=== PATIENT | female | born 1990 | race Caucasian/White ===

== ENCOUNTER 2017-04-12 07:57 | Emergency (ER) | payer MEDICARE | END 2017-04-12 08:50 | disposition home or self-care (01) | LOC: D.ER 07:57 | DX: S69.91XA Unspecified injury of right wrist, hand and finger(s), initial encounter (principal); W23.0XXA Caught, crushed, jammed, or pinched between moving objects, initial encounter; Y93.89 Activity, other specified; Y92.89 Other specified places as the place of occurrence of the external cause; Z86.59 Personal history of other mental and behavioral disorders; F17.200 Nicotine dependence, unspecified, uncomplicated ==

== ENCOUNTER 2018-02-24 23:43 | Emergency (ER) | payer MEDICARE ==
[~2018-02-24] VITALS: Ht 165.1 cm; Wt 161.8 kg
[2018-02-24 23:56] VITALS: Ht 165.1 cm; Wt 161.8 kg
[2018-02-24] MEDS ORDERED: TESTOSTERONE IM (23:58)
[2018-02-24] MEDS ORDERED: SEROQUEL200 MG PO (23:59)
[2018-02-24] MEDS ORDERED: ATIVAN1 MG PO (23:59)
[2018-02-24] MEDS ORDERED: BENZTROPINE MESY2 MG PO (23:59)
[2018-02-24] MEDS ORDERED: DEPAKOTE500 MG PO (23:59)
[2018-02-25] MEDS ORDERED: INVEGA 3 MG ER T3 MG PO
[2018-02-25] MEDS ORDERED: ULTRAM50 MG PO (01:26)
[2018-02-25 01:43] VITALS: BP 134/90
== END 2018-02-25 01:43 | disposition home or self-care (01) ==
LOC: D.ER 23:43
DX: S80.02XA Contusion of left knee, initial encounter (principal); W18.2XXA Fall in (into) shower or empty bathtub, initial encounter; Y93.E1 Activity, personal bathing and showering; Y92.012 Bathroom of single-family (private) house as the place of occurrence of the external cause; S76.112A Strain of left quadriceps muscle, fascia and tendon, initial encounter; F17.200 Nicotine dependence, unspecified, uncomplicated

== ENCOUNTER 2018-02-28 21:16 | Emergency (ER) | payer MEDICARE ==
[~2018-02-28] VITALS: Ht 165.1 cm; Wt 161.8 kg
[~2018-02-28 21:16] MED LIST: ATIVAN1 MG PO; BENZTROPINE MESY2 MG PO; DEPAKOTE500 MG PO; INVEGA 3 MG ER T3 MG PO; SEROQUEL200 MG PO; TESTOSTERONE IM; ULTRAM50 MG PO
[2018-02-28 21:25] VITALS: Ht 165.1 cm; Wt 161.8 kg
[2018-02-28] MEDS ORDERED: EC-NAPROSYN500 MG PO (21:57)
[2018-02-28 22:18] VITALS: BP 157/99
== END 2018-02-28 22:18 | disposition home or self-care (01) ==
LOC: D.ER 21:16
DX: S93.402A Sprain of unspecified ligament of left ankle, initial encounter (principal); W18.30XA Fall on same level, unspecified, initial encounter; Y93.89 Activity, other specified; Y92.019 Unspecified place in single-family (private) house as the place of occurrence of the external cause; F17.200 Nicotine dependence, unspecified, uncomplicated